=== PATIENT | female | born 1970 | race Caucasian/White ===

== ENCOUNTER 2018-08-12 06:31 | Day surgery (SDC) | payer BC ==
--- NOTE | 2018-08-07 15:39 | HP ---
PREOPERATIVE HISTORY AND PHYSICAL: DATE OF ADMISSION/SURGERY: 08/12/18 DATE OF OFFICE VISIT/ENCOUNTER: 08/01/18 ATTENDING SURGEON: April Vera MD * (DICTATED BY ASHELY MELÉNDEZ) PROCEDURE: Left wrist carpal tunnel release. CHIEF COMPLAINT: Numbness and tingling, left hand. HISTORY OF PRESENT ILLNESS: This is a 47-year-old female, who complains of numbness and tingling in her left hand. She also has similar symptoms in her right hand. The numbness and tingling involves primarily the index, middle and ring fingers. This has been ongoing off and on for years; however, several months ago the symptoms seemed to increase and are a bit more persistent. She denies any injury. She does a lot of typing. She is employed at the [employer]. She has tried wrist bracing at night, which is helpful, but sometimes they are too uncomfortable to wear. She had a nerve conduction EMG study, which showed bilateral moderate carpal tunnel syndrome. She would like to proceed with a left carpal tunnel release at this time. PAST MEDICAL HISTORY: 1. Hypercholesterolemia. 2. Hypertension. 3. Anxiety/depression. PAST SURGICAL HISTORY: 1. Cholecystectomy. 2. Surgery to correct pyloric stenosis as a child. CURRENT MEDICATIONS: 1. Fluoxetine 20 mg daily. 2. Lisinopril 10 mg daily. 3. Naproxen 500 mg twice a day p.r.n. 4. Pravastatin sodium 20 mg daily. ALLERGIES: No known drug allergies. FAMILY MEDICAL HISTORY: Noncontributory. SOCIAL HISTORY: The patient is employed at [employer] in [place], [place]. She denies tobacco use, recreational drug use, and does not drink alcohol. REVIEW OF SYSTEMS: Negative for general, cephalic, cardiovascular, respiratory , GI, , other musculoskeletal, integumentary, endocrine, neurologic, and hematologic symptoms. Infectious Diseases: Negative for history of MRSA, hepatitis C, HIV. PHYSICAL EXAMINATION GENERAL: Well-developed, well-nourished 47-year-old female, in no acute distress. VITAL SIGNS: Height 5 feet 2 inches, weight 260 pounds. Pulse rate 63, blood pressure 122/78. HEENT: Normocephalic, atraumatic. Pupils are equal, round, and reactive to light and accommodation. Extraocular movements are intact. Throat is clear. NECK: Supple. No palpable lymph nodes. PULMONARY: Lungs are clear to auscultation bilaterally. No wheezes, rales, or rhonchi. CARDIOVASCULAR: Regular rate and rhythm. S1, S2. No murmurs, rubs, or gallops. No edema. ABDOMEN: Positive bowel sounds. Soft, nontender. NEUROLOGICAL: Alert and oriented x3. Cranial nerves II through XII are intact. MUSCULOSKELETAL: Left hand, there is no visible thenar or interosseous wasting. She has mild weakness of the left thumb with abduction. Negative Tinel's at the elbow and the wrist. Negative median nerve compression test. Negative Phalen's test. Sensation is intact to light touch throughout both hands. IMAGING STUDIES: EMG nerve conduction study shows bilateral moderate carpal tunnel syndrome. IMPRESSION: Bilateral carpal tunnel syndrome. PLAN: The patient is scheduled to undergo a left wrist carpal tunnel release with Dr. Vera on 08/12/18. She will return to the office 10 days postop for followup and suture removal. A prescription for Tylenol No. 3 was e-scribed to the patient's pharmacy for postoperative pain management. ASHELY MELÉNDEZ [id number]/[facility] #: [id number] MARIN
[~2018-08-12 06:31] MED LIST: Buffered Lidocaine 1% SYRIN* 1 ML/SYRINGE INTRADERM ONE; Lactated Ringers 1000 ML Bag* 1,000 ML IV SCH
[2018-08-12] MEDS ORDERED: fentaNYL* 50 MCG/ML 2 ML VIAL (100 MCG VIAL) ONE (07:55)
[2018-08-12] MEDS ORDERED: Lidocaine 1% INJ* 10 MG/ML 30 ML SDV ONE (08:06)
[2018-08-12] MEDS ORDERED: Naloxone* 0.4 MG/ML 1 ML VIAL IV PRN (08:15)
[2018-08-12 09:22] VITALS: BP 113/78
--- NOTE | 2018-08-12 12:10 | OP ---
DATE OF OPERATION: 08/12/18 - [facility] DATE OF : 66 SURGEON: April Vera MD. ANIMAL CONTROL LICENSING WORKER: ASHELY Philip. ANESTHESIA: Local MAC. PRE-OP DIAGNOSIS: Left carpal tunnel syndrome. POST-OP DIAGNOSIS: Left carpal tunnel syndrome. OPERATIVE PROCEDURE: Left carpal tunnel release. INDICATIONS FOR PROCEDURE: Jovita is a 47-year-old female with numbness and tingling in the median nerve distribution of her left hand. She presents for left carpal tunnel release. ESTIMATED BLOOD LOSS: Zero. TOURNIQUET TIME: About 5 minutes. DESCRIPTION OF PROCEDURE: The patient was brought to the operating room, was given a sedation anesthetic and a local infiltration of 10 cc of 1% plain lidocaine in the palm of her left hand. The skin of her left hand and forearm was prepped and draped in the usual sterile fashion. The hand and forearm were exsanguinated and the tourniquet elevated to 250 mmHg. A longitudinal incision was made in the palm in line with the ring finger. We dissected through the subcutaneous tissue down to the transverse carpal ligament. The ligament was divided sharply with a knife and then more proximally with the scissors. The nerve was dissected free from the surrounding tissue and there was an area of significant compression at the mid portion of the ligament. The wound was irrigated and the skin edges were reapproximated with 4-0 nylon suture. The wound was dressed with Xeroform, 4x4, Webril, and an Baldomero wrap. The patient tolerated the procedure well and was brought to the recovery room in good condition. [id number]/[facility] #: [id number] [facility] HEALTHIgnacio
== END 2018-08-12 09:18 | disposition home or self-care (01) ==
LOC: OR 06:31
PROVIDERS: ATTEND Orthopaedic Surgery
DX: G56.02 Carpal tunnel syndrome, left upper limb (principal); I10 Essential (primary) hypertension; E78.5 Hyperlipidemia, unspecified; Z68.42 Body mass index [BMI] 45.0-49.9, adult; R42 Dizziness and giddiness; F41.8 Other specified anxiety disorders; E78.00 Pure hypercholesterolemia, unspecified
CPT/HCPCS: 81025; J3010

== ENCOUNTER 2020-07-13 16:43 | Inpatient (IN) ==
[2020-07-13 18:09] LABS: ABS Basophils 0.1 10^3/ul (0-0.2); ABS Eosinophils 0.2 10^3/ul (0-0.6); ABS Lymphocytes 2.5 10^3/ul (1.0-4.8); ABS Monocytes 0.6 10^3/ul (0-0.8); Eosinophil % 2.7 %; Hematocrit 41 % (35-47); Lymphocyte % 33.7 %; Mean Corpuscular HGB Conc 34 g/dL (31-36); Mean Corpuscular Hemoglobin 29 pg (27-31); Mean Corpuscular Volume 84 fL (80-97); Mean Platelet Volume 7.2 fL (7.4-10.4); Platelet Count 296 10^3/uL (150-450); Red Blood Count 4.89 10^6 /uL (3.70-4.87); Red Cell Distribution Width 14 % (10-15); White Blood Count 7.4 10^3/uL (3.5-10.8)
[2020-07-13 18:29] LABS: ALT 17 U/L (7-52); AST 20 U/L (13-39); Albumin 4.3 g/dL (3.2-5.2); Albumin/Globulin Ratio 1.5 (1-3); Alkaline Phosphatase 64 U/L (34-104); Anion Gap 7 mmol/L (2-11); BUN/Creatinine Ratio 24.4 (8-20); Blood Urea Nitrogen 19 mg/dL (6-24); C Reactive Protein 7.37 mg/L (<8.01); CO2 Carbon Dioxide 28 mmol/L (22-32); Chloride 105 mmol/L (101-111); EGFR African American 94.2 (>60); EGFR Non-African American 77.9 (>60); Globulin 2.8 g/dL (2-4); Glucose 102 mg/dL (70-100); Magnesium 2.2 mg/dL (1.9-2.7); Potassium 3.9 mmol/L (3.5-5.0); Sodium 140 mmol/L (135-145); Total Protein 7.1 g/dL (6.4-8.9)
[2020-07-13 19:38] LABS: Vitamin B12 > 1450 pg/mL (180-914)
[2020-07-13] MEDS ORDERED: Ondansetron 4 mg VIAL 2 MG/ML 2 ml VIAL IV PRN (21:15)
[2020-07-13 21:49] LABS: Alcohol, S < 10 mg/dL (<10)
[2020-07-13 21:52] LABS: Cholesterol 222 mg/dL; LDL Cholesterol 126 mg/dL; Triglycerides 228 mg/dL
[2020-07-13 22:03] LABS: Folate 9.38 ng/mL (>3.99)
[2020-07-13 22:06] LABS: Vitamin D Total 25(OH) 19.8 ng/mL (20-50)
[2020-07-14 12:21] LABS: Urine Appearance Clear; Urine Bilirubin Negative (Negative); Urine Blood 1+ (Negative); Urine Color Yellow; Urine Glucose Negative (Negative); Urine Ketones Negative (Negative); Urine Nitrite Negative (Negative); Urine Protein Negative (Negative); Urine Specific Gravity 1.015 (1.010-1.030); Urine Urobilinogen Negative (Negative)
[2020-07-14 12:25] LABS: Urine Bacteria Absent (Absent); Urine Red Blood Cell 1+(3-5/hpf) (Absent); Urine Squamous Epithelial Cell Present (Absent); Urine White Blood Cell Trace(0-5/hpf) (Absent)
[2020-07-14] MEDS ORDERED: Gadoteridol (CONTRAST) 279.3 MG/ML 10 ML IV ONE (15:53)
[2020-07-14] MEDS ORDERED: Lorazepam PYXIS KEY PRN (17:01)
[2020-07-14] MEDS ORDERED: LORazepam 2 mg VIAL 1 ml IV PUSH ONE (17:02)
[2020-07-14] MEDS ORDERED: LORazepam 2 mg VIAL 1 ml ONE (17:09)
[2020-07-15] MEDS ORDERED: Lorazepam PYXIS KEY PRN (10:55)
[2020-07-15] MEDS ORDERED: LORazepam 2 mg VIAL 1 ml IV PUSH ONE (10:56)
[2020-07-15] MEDS ORDERED: methylPREDNISolone SOD SUCC 1000 MG ML VIAL IVPB SCH (11:00)
[2020-07-15] MEDS: methylPREDNISolone SOD SUCC 1,000 MG in NS 0.9% 250 ml 250 ML IVPB SCH (12:49)
[2020-07-15 12:50] LABS: Body Fluid Source Cerebral Spinal
[2020-07-15 13:08] LABS: CSF Glucose 64 mg/dL (40-70)
[2020-07-15 14:10] LABS: Body Fluid Mono 10 %
[2020-07-16] MEDS: methylPREDNISolone SOD SUCC 1,000 MG in NS 0.9% 250 ml 250 ML IVPB SCH (09:35)
[2020-07-16] MEDS ORDERED: Gadoteridol (CONTRAST) 279.3 MG/ML 10 ML IV ONE (18:30)
[2020-07-16 21:22] LABS: Phospholipid Ab IgG < 9.4 GPL; Phospholipid Ab IgM, S < 9.4 MPL
[2020-07-17] MEDS ORDERED: Al Hydrox/Mg Hydrox/Simet LIQ 30 ML UDC PO PRN (06:27)
[2020-07-17] MEDS ORDERED: Polyethylene Glycol 3350 17 GM PACKET PO PRN (06:27)
[2020-07-17] MEDS: methylPREDNISolone SOD SUCC 1,000 MG in NS 0.9% 250 ml 250 ML IVPB SCH (08:56)
[2020-07-17 13:42] LABS: Oligoclonal Proteins Interpret 10 bands (<2)
[2020-07-17 14:58] VITALS: BP 98/70
[2020-07-17 22:00] LABS: SS-A/Ro Antibody <0.2 U; SS-B/La Antibody <0.2 U
[2020-07-18 15:17] LABS: Anti SSA/RO Antibody <0.2 U
[2020-07-21 23:50] LABS: NMO/AQP4 IgG Negative (Negative)
== END 2020-07-17 16:50 | disposition home or self-care (01) | DRG 43 ==
LOC: ED 16:43 → MEDTELE 16:43
PROVIDERS: ADMIT Internal Medicine Interventional Cardiology; ATTEND Internal Medicine